=== PATIENT | female | born 1995 | race Two or more races ===

== ENCOUNTER 2021-04-26 01:27 | Inpatient (IN) | payer OTHER ==
[~2021-04-26] VITALS: Ht 162.6 cm; Wt 86.2 kg
[2021-04-26] MEDS ORDERED: PRENATAL CAPLE1 EAC1 (02:23)
[2021-04-26] MEDS ORDERED: SELENIUM SULFI120 ML (08:27)
[2021-04-27] MEDS ORDERED: IRON325 MG PO (08:59)
[2021-04-27] MEDS ORDERED: MONODOX100 MG PO (08:59)
== END 2021-04-27 14:59 | disposition home or self-care (01) | DRG 805 ==
LOC: LDR 01:27 → SURG 08:14
PROVIDERS: ADMIT Obstetrics & Gynecology; ATTEND Obstetrics & Gynecology
PROC: 10E0XZZ Delivery of Products of Conception, External Approach (ICD-10-PCS; principal; 2021-04-26)
PROC: 4A1HXFZ Monitoring of Products of Conception, Cardiac Rhythm, External Approach (ICD-10-PCS; 2021-04-26)
DX: O60.12X0 Preterm labor second trimester with preterm delivery second trimester, not applicable or unspecified (principal); O41.1220 Chorioamnionitis, second trimester, not applicable or unspecified; Z37.1 Single stillbirth; O42.012 Preterm premature rupture of membranes, onset of labor within 24 hours of rupture, second trimester; Z3A.20 20 weeks gestation of pregnancy

== ENCOUNTER 2021-12-14 05:58 | Day surgery (SDC) | payer OTHER ==
[~2021-12-14] VITALS: Ht 162.6 cm; Wt 86.2 kg
[~2021-12-14 05:58] MED LIST: IRON325 MG PO; MONODOX100 MG PO; PRENATAL CAPLE1 EAC1; SELENIUM SULFI120 ML
== END 2021-12-14 13:50 | disposition home or self-care (01) ==
LOC: CIR.AMB 05:58
PROVIDERS: ATTEND Obstetrics & Gynecology Maternal & Fetal Medicine
DX: O34.31 Maternal care for cervical incompetence, first trimester (principal); Z3A.01 Less than 8 weeks gestation of pregnancy; E66.8 Other obesity

== ENCOUNTER 2022-04-02 03:45 | Inpatient (IN) | payer OTHER ==
[~2022-04-02] VITALS: Ht 162.6 cm; Wt 88.5 kg
[2022-04-02] MEDS ORDERED: NIFEDIPINE10 MG PO (03:53)
[2022-04-02] MEDS ORDERED: PRENATAL TABLE1 EAC1 PO (03:54)
== END 2022-04-06 14:14 | disposition home or self-care (01) | DRG 786 ==
LOC: OB/GYN 03:45 → LDR 03:45 → OB/GYN 04-03 12:51
PROVIDERS: Obstetrics & Gynecology Gynecology; ADMIT Obstetrics & Gynecology; ATTEND Obstetrics & Gynecology
PROC: BY4FZZZ Ultrasonography of Third Trimester, Single Fetus (ICD-10-PCS; 2022-04-02)
PROC: BU4CZZZ Ultrasonography of Uterus and Ovaries (ICD-10-PCS; 2022-04-02)
PROC: 4A1HXCZ Monitoring of Products of Conception, Cardiac Rate, External Approach (ICD-10-PCS; 2022-04-02)
PROC: 0UCC7ZZ Extirpation of Matter from Cervix, Via Natural or Artificial Opening (ICD-10-PCS; 2022-04-04)
PROC: 10D00Z1 Extraction of Products of Conception, Low, Open Approach (ICD-10-PCS; principal; 2022-04-04 06:00)
DX: O32.1XX0 Maternal care for breech presentation, not applicable or unspecified (principal); O34.33 Maternal care for cervical incompetence, third trimester; O60.14X0 Preterm labor third trimester with preterm delivery third trimester, not applicable or unspecified; O42.013 Preterm premature rupture of membranes, onset of labor within 24 hours of rupture, third trimester; Z3A.29 29 weeks gestation of pregnancy; Z37.0 Single live birth; Z20.822 Contact with and (suspected) exposure to COVID-19

== ENCOUNTER → 2022-04-07 | Emergency (ER) | payer OTHER ==
[~2022-04-07] VITALS: Ht 162.6 cm; Wt 88.9 kg
[~2022-04-07] MED LIST changes: +NIFEDIPINE10 MG PO; +PRENATAL TABLE1 EAC1 PO
== END | disposition left against medical advice (07) ==
LOC: ER 13:42
DX: Z53.21 Procedure and treatment not carried out due to patient leaving prior to being seen by health care provider (principal)

== ENCOUNTER 2022-04-11 11:14 | Emergency (ER) | payer OTHER ==
[~2022-04-11] VITALS: Ht 162.6 cm; Wt 70.8 kg
== END 2022-04-11 15:27 | disposition home or self-care (01) ==
LOC: ER 11:14
DX: O90.89 Other complications of the puerperium, not elsewhere classified (principal); O90.0 Disruption of cesarean delivery wound